=== PATIENT | male | born 1980 | race Caucasian/White ===

== ENCOUNTER → 2016-05-18 | Outpatient (CLI) | payer BC ==
[2016-05-20 13:45] LABS: PARASITIC EXAM FIN 1122 (())
== END ==
LOC: MOB LAB 11:51
PROVIDERS: ATTEND Physician Assistant Medical
DX: R19.7 Diarrhea, unspecified (principal)
CPT/HCPCS: 87046; 87177; 87205; 87209; 87328; 87329; 87493